=== PATIENT | female | born 1985 | race Caucasian/White ===

== ENCOUNTER 2020-06-28 22:59 | Emergency (ER) | payer SELFPAY ==
[~2020-06-28] VITALS: Ht 162.6 cm; Wt 78.9 kg
--- NOTE | 2020-06-28 23:18 | PHYS DOC ---
General Adult EDM: Chief Complaint: ABDOMINAL PAIN HPI: HPI: ".. I been hurting here on the right.. upper and stomach area.. vomiting.... the last thing I ate .. Was biscuits and gravy yesterday night.. I not feeling.. right all day.. I have been) vomiting.. now dry heaving... Patient is a 34 year old female who presents with above hx and complaints of abdomen pain, nausea and vomiting. Pain is localized to the epigastric and ri ght upper quadrant. No previous history of gallbladder disease with her or family members. No history of trauma. No history of intake of bad food. Has passed stool. No recent travel. No specific ill contacts. Is normally healthy. No history immuno suppression. Patient does not do flu vaccination. Patient does not follow-up with primary care. There is a strong family history of diverticulitis starting age 40 with grandmother and mother. Patient does do a high-fiber diet. Review of Systems: Review of Systems: Constitutional: Denies fever or chills Eyes: Denies change in visual acuity HENT: Denies nasal congestion or sore throat Respiratory: Denies cough or shortness of breath Cardiovascular: Denies chest pain or edema GI: Complains of epigastric and right upper quadrant abdominal pain, nausea, vomiting,. Denies bloody stools or diarrhea : Denies dysuria Musculoskeletal: Denies back pain or joint pain Integument: Denies rash Neurologic: Denies headache, focal weakness or sensory changes Endocrine: Denies polyuria or polydipsia Lymphatic: Denies swollen glands Psychiatric: Denies depression or anxiety Family History: Family History: Mother and grandmother both have diverticulitis episodes that starts in the 40s. Current Medications: Current Meds: See nursing for home meds Allergies: Allergies: Allergic to Cefactor Physical Exam: PE: Constitutional: Well developed, well nourished, moderate acute distress, non- toxic appearance. [] HENT: Normocephalic, atraumatic, bilateral external ears normal, oropharynx moist, no oral exudates, nose normal. [] Eyes: PERRLA, EOMI, conjunctiva normal, no discharge. [] Neck: Normal range of motion, no tenderness, supple, no stridor. [] Cardiovascular: Tachycardia heart rate regular rhythm, no murmur [] Lungs & Thorax: Bilateral breath sounds clear to auscultation [] Abdomen: Bowel sounds hyperactive, soft, right upper quadrant and mid quadrant tenderness, no masses, no pulsatile masses. Rebound to epigastric and right upper and mid quadrant. Skin: Warm, dry, no erythema, no rash. [] Back: No tenderness, no CVA tenderness. [] Extremities: No tenderness, no cyanosis, no clubbing, ROM intact, no edema. No psoas sign Neurologic: Alert and oriented X 3, normal motor function, normal sensory function, no focal deficits noted. [] Psychologic: Affect anxious, judgment normal,, mood normal. [] EKG: EKG: My interpretation of EKG shows a sinus tachycardia 110 bpm. Does have bimodal P waves and left leads. [] Radiology/Procedures: Radiology/Procedures: [address] [address] IMAGING REPORT Signed PATIENT: BELLE GODDARD ACCOUNT: [id number] : 1985 LOCATION: ER AGE: 34 SEX: F EXAM STATUS: REG ER ORD. PHYSICIAN: SHAQUILLE RIVER MD REASON: Rt. upper quadrant pain, OMNI 300, 75ml & OMNI 240, 30ml PROCEDURE: CT ABD PELV W/ORAL&IV CONTRAST CT ABD PELV W/ORAL IV CONTRAST History: Rt. upper quadrant pain Comparison: None. Technique: After administration of intravenous contrast, helical CT of the abdomen and pelvis was performed from the lung bases through the ischial tuberosities. Coronal and sagittal reconstructions were obtained. 75 mL of Omnipaque 300 were used. One or more of the following dose reduction techniques were utilized: Automated exposure control (AEC), Adjustment of mA and/or kV according to patient size, Use of iterative reconstruction technique such as ASiR, CT scan done according to ALARA and image gently/image wisely Abdomen Findings: The visualized lung bases are clear. The liver, gallbladder, pancreas, spleen, and bilateral adrenal glands are normal. Symmetric renal enhancement. There is no focal renal mass. There is no hydronephrosis. The visualized loops of small bowel are normal. Mild colonic diverticulosis. Inflammation surrounding a cecal diverticulum. No organized fluid collection or free air. Appendix is normal. There is no free fluid. There is no mesenteric or retroperitoneal adenopathy. The abdominal aorta is normal in caliber. Pelvis Findings: Urinary bladder is partially distended. Uterus is present. No pelvic free fluid. There is no pelvic or inguinal adenopathy. There is no acute bony abnormality. IMPRESSION: 1. Acute cecal diverticulitis. No abscess or free air. 2. Normal appendix. Electronically signed by: Bryan Winchester MD (06/29/2020 3:19 AM) [facility] DICTATED AND SIGNED BY: BRYAN WINCHESTER MD DATE: 06/29/20318 CC: SHAQUILLE RIVER MD; PCP,NO ~MTH0 0 [][place] [address] IMAGING REPORT Signed PATIENT: BELLE GODDARD ACCOUNT: [id number] : 1985 LOCATION: ER AGE: 34 SEX: F EXAM STATUS: REG ER ORD. PHYSICIAN: SHAQUILLE RIVER MD REASON: abd. pain, nausea, vomiting, chest pain PROCEDURE: ACUTE ABDOMEN SERIES ACUTE ABDOMEN SERIES INDICATION: abd. pain, nausea, vomiting, chest pain / Spl. Instructions: / History: . COMPARISON STUDY: None. FINDINGS: Lungs: Normal lung volume. No pulmonary mass or consolidation. The tracheobronchial tree and hilar structures are normal. Pleura: No pleural effusion or pneumothorax. Heart and Mediastinum: The cardiomediastinal silhouette is normal. The great vessels of the thorax are normal. Abdomen: Nonobstructive bowel gas pattern. No free air. IMPRESSION: No focal airspace disease. Nonobstructive bowel gas pattern. Electronically signed by: Bryan Winchester MD (06/29/2020 1:10 AM) [facility] DICTATED AND SIGNED BY: BRYAN WINCHESTER MD DATE: 06/29/20109 CC: SHAQUILLE RIVER MD; PCP,NO ~MTH0 0 Heart Score: HEART Score for Chest Pain: HEART Score for Chest Pain Response (Comments) Value History Slighlty/Non-Suspicious 0 ECG Normal 0 Age < 45 0 Risk Factors 1 or 2 Risk Factors 1 Troponin < Normal Limit 0 Total 1 Risk Factors: Risk Factors: DM, Current or recent (<one month) smoker, HTN, HLP, family history of CAD, obesity. Risk Scores: Score 0 - 3: 2.5% MACE over next 6 weeks - Discharge Home Score 4 - 6: 20.3% MACE over next 6 weeks - Admit for Clinical Observation Score 7 - 10: 72.7% MACE over next 6 weeks - Early Invasive Strategies Course & Med Decision Making: Course & Med Decision Making Pertinent Labs and Imaging studies reviewed. (See chart for details) Patient stay on a clear fluid diet for the next 48 hours. No solids. No milk products. Must allow bowel rest. May take Tylenol and ibuprofen for pain. Take Flagyl 500 mg 3 times a day. Take Cipro 500 twice a day. Patient follow- up primary care. Return if any concerns. Consider follow-up colonoscopy. May take Vicoprofen up to 4 times a day for marked pain. Impression: 1. Nausea and vomiting 2. Right upper quadrant and epigastric pain 3. Leukocytosis 14.9 4. Elevated bilirubin 1.5 direct bilirubin 0.3 5. Acute cecal diverticulitis Note : Charting issues and discharge instructions.. Computer system problems. [] Clinton Disclaimer: Clinton Disclaimer: This electronic medical record was generated, in whole or in part, using a voice recognition dictation system. Departure Departure: Referrals: [facility] (PCP) Scripts Prochlorperazine Maleate (COMPAZINE) 25 Mg Supp.rect 25 MG RC QIDPRN PRN for NAUSEA/VOMITING, #10 SUPP.RECT Prov: SHAQUILLE RIVER MD 06/29/20 Ciprofloxacin (CIPRO) 500 Mg/5 Ml [facility].rec 500 MG PO BID for diverticulitis for 7 Days, MISC Prov: SHAQUILLE RIVER MD 06/29/20 Metronidazole (FLAGYL) 500 Mg Tablet 500 MG PO TID for diverticulitis for 10 Days, #30 TAB Prov: SHAQUILLE RIVER MD 06/29/20 Hydrocodone/Ibuprofen (HYDROCODONE-IBUPROFEN 7.5-200 ) 1 Each Tablet 1 TAB PO PRN Q6HRS PRN for PAIN, #30 TAB 0 Refills Prov: SHAQUILLE RIVER MD 06/29/20 Clinton Disclaimer This chart was dictated in whole or in part using Voice Recognition software in a busy, high-work load, and often noisy Emergency Department environment. It may contain unintended and wholly unrecognized errors or omissions. Dragon Disclaimer This chart was dictated in whole or in part using Voice Recognition software in a busy, high-work load, and often noisy Emergency Department environment. It may contain unintended and wholly unrecognized errors or omissions. Dragon Disclaimer This chart was dictated in whole or in part using Voice Recognition software in a busy, high-work load, and often noisy Emergency Department environment. It may contain unintended and wholly unrecognized errors or omissions. SHAQUILLE RIVER MD Jun 28, 2020 23:18
[2020-06-28] MEDS ORDERED: ONDANSETRON PF 4 MG/2 ML VIAL. ONE (23:27)
[2020-06-28] MEDS ORDERED: FAMOTIDINE 20 MG/2 ML VIAL ONE ×2 (23:27)
[2020-06-28] MEDS ORDERED: FAMOTIDINE 20 MG/2 ML VIAL IVP ONE (23:30)
[2020-06-28] MEDS ORDERED: IV RINGERS SOLUTION,LACTATED 1,000 ML IV SCH (23:30)
[2020-06-28] MEDS ORDERED: ONDANSETRON PF 4 MG/2 ML VIAL. IVP ONE (23:30)
[2020-06-28 23:59] LABS: BASO % 0 % (0-3); EOS % 0 % (0-3); HEMATOCRIT 39.2 % (36.0-47.0); HEMOGLOBIN 12.8 g/dL (12.0-15.5); LYMPH % 7 % (24-48); MEAN CORPUSCULAR HEMOGLOBIN 27 pg (25-35); MEAN CORPUSCULAR HGB CONC 33 g/dL (31-37); MEAN CORPUSCULAR VOLUME 83 fL (79-100); MONO # 0.6 x10^3/uL (0.0-1.1); MONO % 4 % (0-9); NEUT # 13.2 x10^3uL (1.8-7.7); NEUT % 89 % (31-73); PLATELET COUNT 353 x10^3/uL (140-400); RED BLOOD COUNT 4.76 x10^6/uL (3.50-5.40); RED CELL DISTRIBUTION WIDTH 13.9 % (11.5-14.5); WHITE BLOOD COUNT 14.9 x10^3/uL (4.0-11.0)
[2020-06-29] LABS: CALCIUM 9.3 mg/dL (8.5-10.1); CREATININE 0.6 mg/dL (0.6-1.0); GFR 115.1
[2020-06-29 00:06] LABS: ALBUMIN 3.9 g/dL (3.4-5.0); DIRECT BILIRUBIN 0.3 mg/dL (0.0-0.2); TOTAL BILIRUBIN 1.5 mg/dL (0.2-1.0); TOTAL PROTEIN 7.8 g/dL (6.4-8.2)
[2020-06-29] MEDS ORDERED: ONDANSETRON PF 4 MG/2 ML VIAL. IVP ONE (00:30)
[2020-06-29 00:55] LABS: BACTERIA,URINE FEW /HPF (0-FEW); BILIRUBIN,URINE NEG (NEG); CLARITY,URINE CLEAR; COLOR,URINE YELLOW; GLUCOSE,URINE NEG (NEG); NITRITE,URINE NEG (NEG); SQUAMOUS EPITHELIAL CELL,UR FEW /LPF; UROBILINOGEN,URINE 0.2 mg/dL (0.2 mg/dL); WBC,URINE 0 /HPF (0-4)
[2020-06-29 00:59] LABS: BARBITURATES NEG (NEG); BENZODIAZEPINES NEG (NEG); CANNABINOIDS POS (NEG); COCAINE NEG (NEG); METHADONE NEG (NEG); OPIATES NEG (NEG); PHENCYCLIDINE NEG (NEG)
[2020-06-29 01:01] LABS: AMPHETAMINE/METHAMPHETAMINE NEG (NEG)
--- NOTE | 2020-06-29 01:12 | RAD ---
ACUTE ABDOMEN SERIES INDICATION: abd. pain, nausea, vomiting, chest pain / Spl. Instructions: / History: . COMPARISON STUDY: None. FINDINGS: Lungs: Normal lung volume. No pulmonary mass or consolidation. The tracheobronchial tree and hilar structures are normal. Pleura: No pleural effusion or pneumothorax. Heart and Mediastinum: The cardiomediastinal silhouette is normal. The great vessels of the thorax are normal. Abdomen: Nonobstructive bowel gas pattern. No free air. IMPRESSION: No focal airspace disease. Nonobstructive bowel gas pattern. Electronically signed by: Augusto Giraldo MD (06/29/2020 1:10 AM) [facility]
[2020-06-29] MEDS ORDERED: diphenhydrAMINE 50 MG/ML VIAL IVP ONE (01:30)
[2020-06-29] MEDS ORDERED: PROCHLORPERAZINE 10 MG/2 ML VIAL. IV ONE (01:30)
[2020-06-29] MEDS ORDERED: IOHEXOL 300 MG/ML 75 ML VIAL. IV ONE (01:45)
[2020-06-29] MEDS ORDERED: IOHEXOL 240 MG/ML 50ML VIAL. PO ONE (01:45)
[2020-06-29] MEDS ORDERED: CONTRAST GIVEN. MC PRN (01:45)
--- NOTE | 2020-06-29 02:07 | EKG ---
[address] [address] Test Date: 2020-06-29 Test Time: 02:00:03 Pat Name: BELLE GODDARD Department: Room: Gender: F Client Application Support Engineer: ISA : 1985 Requested By: SHAQUILLE RIVER Order Number: [id number] Reading MD: Obey Sears Measurements Intervals [place] Rate: 110 P: 24 OK: 126 QRS: 8 QRSD: 80 T: 26 QT: 324 QTc: 444 Interpretive Statements SINUS TACHYCARDIA LEFT ATRIAL ABNORMALITY Electronically Signed On 07-01-2020 10:36:17 [employer] WORK[employer] by Obey Sears
[2020-06-29] MEDS ORDERED: MORPHINE SULFATE 10 MG/ML SYRINGE. SQ ONE (02:15)
--- NOTE | 2020-06-29 03:22 | RAD ---
CT ABD PELV W/ORAL IV CONTRAST History: Rt. upper quadrant pain Comparison: None. Technique: After administration of intravenous contrast, helical CT of the abdomen and pelvis was performed from the lung bases through the ischial tuberosities. Coronal and sagittal reconstructions were obtained. 75 mL of Omnipaque 300 were used. One or more of the following dose reduction techniques were utilized: Automated exposure control (AEC), Adjustment of mA and/or kV according to patient size, Use of iterative reconstruction technique such as ASiR, CT scan done according to ALARA and image gently/image wisely Abdomen Findings: The visualized lung bases are clear. The liver, gallbladder, pancreas, spleen, and bilateral adrenal glands are normal. Symmetric renal enhancement. There is no focal renal mass. There is no hydronephrosis. The visualized loops of small bowel are normal. Mild colonic diverticulosis. Inflammation surrounding a cecal diverticulum. No organized fluid collection or free air. Appendix is normal. There is no free fluid. There is no mesenteric or retroperitoneal adenopathy. The abdominal aorta is normal in caliber. Pelvis Findings: Urinary bladder is partially distended. Uterus is present. No pelvic free fluid. There is no pelvic or inguinal adenopathy. There is no acute bony abnormality. IMPRESSION: 1. Acute cecal diverticulitis. No abscess or free air. 2. Normal appendix. Electronically signed by: Augusto Giraldo MD (06/29/2020 3:19 AM) [facility]
[2020-06-29] MEDS ORDERED: METR500T PO (03:42)
[2020-06-29] MEDS ORDERED: CIPR500S2 PO (03:42)
[2020-06-29] MEDS ORDERED: HYDR-1179 PO (03:42)
[2020-06-29] MEDS ORDERED: PROC25SU21 RC (03:47)
[2020-06-29 03:51] VITALS: BP 132/78
== END 2020-06-29 03:52 | disposition home or self-care (01) ==
LOC: ER 22:59
DX: K57.32 Diverticulitis of large intestine without perforation or abscess without bleeding (principal); D72.829 Elevated white blood cell count, unspecified; E80.7 Disorder of bilirubin metabolism, unspecified; R11.2 Nausea with vomiting, unspecified; R10.11 Right upper quadrant pain; R10.13 Epigastric pain; Z88.8 Allergy status to other drugs, medicaments and biological substances
CPT/HCPCS: 36415; 74022; 74177; 80048; 80076; 80307; 81001; 81025; 82550; 84484; 85025; 93005; 96361; 96365; 96368; 96372; 96375; 96376; 99285; J0780; J1200; J1956; J2270; J2405; J3490; J7120; Q9966; Q9967